=== PATIENT | male | born 1955 | race Caucasian/White ===

== ENCOUNTER 2019-12-11 01:12 | Day surgery (SDC) | payer MEDICARE, OTHER, SELFPAY ==
[2019-12-05 14:28] VITALS: BMI 27.5
[2019-12-11 06:30] VITALS: BP 128/77; PULSE 82; RESP 16; TEMP 36.6; O2SAT 99
[2019-12-11] MEDS: LACTATED RINGERS 1,000 ML 150 ML IV CONT (06:32)
--- NOTE | 2019-12-11 07:12 | WPDANESEPPF ---
Anes - Initial Pre Proc Eval Procedure: Operation Date: 12/11/19 07:30 Proposed Procedures p Screening Colonoscopy - Philipp Henson MD Date/Time: 12/11/19 07:12 Surgeon: Philipp Henson MD Pre Op Diagnosis: Neoplasm Screening Patient Data Age: 64 Gender: M Height: 6 ft 3 in Weight: 96.5 kg Last Vital Signs Temp 36.6 C 12/11/19 06:30 Pulse 82 12/11/19 06:30 Resp 16 12/11/19 06:30 BP 128/77 12/11/19 06:30 Pulse Ox 99 12/11/19 06:30 Allergies Allergy/AdvReac Type Severity Reaction Status Date / Time No Known Allergies Allergy Verified 12/11/19 06:29 Home Medications Medication Instructions Recorded Confirmed Type aspirin 81 mg tablet,delayed 81 mg PO DAILY 10/23/19 12/05/19 History release atorvastatin 80 mg tablet 80 mg PO DAILY 10/23/19 12/05/19 History icosapent ethyl 1 gram capsule 2 gm PO QID cap 10/23/19 12/05/19 History lisinopril 2.5 mg tablet 2.5 mg PO DAILY 10/23/19 12/05/19 History metoprolol tartrate 25 mg tablet 12.5 mg PO DAILY tablet 10/23/19 12/05/19 History Patient hx anesthesia problems: none Family hx anesthesia problems: none [facility] Family History Family History Father Family history of coronary artery disease Social History Social History Smoking status: Never smoker Alcohol intake: current Anes - Eval Final PreProcedure Day of Procedure 12/11/19 07:12 Patient weight: overweight Heart: regular rate and rhythm Lungs: clear to auscultation Airway: Mallampati scale class II Neurological: alert and oriented Last oral intake: >/= 8 hours ASA classification: III Emergent: no Anesthetic plan: proceed Anesthesia type and monitoring: general GIVS and standard monitoring Informed Consent: The patient's anesthetic plan and its attendant risks and benefits were discussed with the patient/family/POA. Questions were solicited and answers provided to the satisfaction of the patient/family/POA.
--- NOTE | 2019-12-11 07:23 | PM.HPGS ---
History of Present Illness History of Present Illness Consent: Risks, benefits, and alternatives have been discussed and questions answered. Patient agrees to proceed with procedure. Chief complaint: Neoplasm Screening Narrative: Kedar Samson is a 64 year old male he is here for his screening colonoscopy Review of Systems Constitutional: Constitutional: Denies headache(s) and Denies weakness Eyes: Eyes: Denies blurry vision ENT: Reports Normal hearing present, Denies headache(s) and Denies neck pain Cardiovascular: Cardiovascular: Denies chest pain and Denies dyspnea Respiratory: Respiratory: Denies dyspnea Gastrointestinal: Gastrointestinal: Reports no additional gastrointestinal complaints Genitourinary: Genitourinary: Denies dysuria Musculoskeletal: Musculoskeletal: Denies neck pain Integumentary/Breasts: Skin/Breast: Denies dry skin Neurologic: Reports Normal hearing present, Denies headache(s) and Denies weakness Psychiatric: Psychiatric: Denies anxiety Endocrine: Endocrine: Denies change in body appearance Hematologic/Lymphatic: Hematologic/Lymphatic: Denies easy bleeding Allergic/Immunologic: Allergic/Immunologic: Denies urticaria PMF Family History Family History Father Family history of coronary artery disease Social History Social History Smoking status: Never smoker Alcohol intake: current Meds Home Medications and Allergies Home Medications Medication Instructions Recorded Confirmed Type aspirin 81 mg tablet,delayed 81 mg PO DAILY 10/23/19 12/05/19 History release atorvastatin 80 mg tablet 80 mg PO DAILY 10/23/19 12/05/19 History icosapent ethyl 1 gram capsule 2 gm PO QID cap 10/23/19 12/05/19 History lisinopril 2.5 mg tablet 2.5 mg PO DAILY 10/23/19 12/05/19 History metoprolol tartrate 25 mg tablet 12.5 mg PO DAILY tablet 10/23/19 12/05/19 History Allergies Allergy/AdvReac Type Severity Reaction Status Date / Time No Known Allergies Allergy Verified 12/11/19 06:29 Vital Signs Vital Signs - 24 hr 12/11/19 06:30 Temperature 97.9 F Pulse Rate 82 Respiratory Rate 16 Blood Pressure 128/77 Pulse Oximetry 99 Exam Const: General: comfortable and no acute distress HENMT: General nose exam: Normal nares present Eyes: General: appearance normal, both eyes and all related structures Neck: Neck: no JVD Resp: Auscultation: clear to auscultation bilaterally Cardio: Rate: regular rate Rhythm: regular rhythm GI: Inspection: non-distended GI Palp: Yes Soft to palpation Skin: General skin exam: normal color Neuro: General: gait normal Speech: normal speech Extrem: General: normal to inspection Psych: Mental Status: mental status grossly normal Assessment and Plan Assessment and plan (1) Colon cancer screening: Code(s): Z12.11 - Encounter for screening for malignant neoplasm of colon Status: Acute Assessment and Plan: will proceed with colonoscopy (2) Essential hypertension: Code(s): I10 - Essential (primary) hypertension Status: Acute
[2019-12-11 07:51] VITALS: BP 104/66; PULSE 78; RESP 17; O2SAT 98
[2019-12-11 08:01] VITALS: BP 107/72; PULSE 70; RESP 16; O2SAT 100
[2019-12-11 08:11] VITALS: BP 114/75; PULSE 66; RESP 22; O2SAT 99
== END 2019-12-11 08:24 | disposition home or self-care (01) ==
PROVIDERS: PCP Internal Medicine; Visit Provider Internal Medicine Gastroenterology
PROC: 0DJD8ZZ Inspection of Lower Intestinal Tract, Via Natural or Artificial Opening Endoscopic (ICD-10-PCS; CPT 45378; principal; 2019-12-11 07:30)
DX: Z12.11 Encounter for screening for malignant neoplasm of colon (principal); I10 Essential (primary) hypertension; Z79.82 Long term (current) use of aspirin
CPT/HCPCS: 45378; J2704; J7120